=== PATIENT | female | born 1980 | race American Indian/Alaskan Native ===

== ENCOUNTER 2021-03-01 15:13 | Emergency (ER) | payer SELFPAY ==
--- NOTE | 2021-03-01 16:21 | Emergency Department Report ---
<YAEL GARCIA - Last Filed: 03/01/21 19:55> ED Female HPI - General Chief complaint: Vaginal Bleeding Stated complaint: RIGHT SIDE PAIN,VAGINAL BLEEDING Time Seen by Provider: 03/01/21 15:49 Source: patient Mode of arrival: Ambulatory Limitations: No Limitations - History of Present Illness Initial comments: 41-year-old female presents to ED with vaginal bleeding and right-sided abdominal pain since last night. Patient denies any fever, nausea or vomiting, vaginal discharge. Patient states she had a menstrual period earlier this month, starting on 02/11/21, ending on 02/16/21. Patient reports she has been passing blood clots. She is unsure if she is . MD Complaint: vaginal bleeding -: Last night Severity: moderate Quality: cramping Consistency: constant Improves with: none Worsens with: none Associated Symptoms: vaginal bleeding, abdominal pain. denies: vaginal discharge, nausea/vomiting, fever/chills - Related Data Sexually active: Yes Previous Rx's Medication Instructions Recorded Last Taken Type Naproxen [Naprosyn] 500 mg PO BID #20 tablet 03/01/21 Unknown Rx traMADoL [Ultram] 50 mg PO Q6HR PRN #7 tablet 03/01/21 Unknown Rx Allergies Allergy/AdvReac Type Severity Reaction Status Date / Time No Known Allergies Allergy Unverified 03/01/21 15:23 ED Review of Systems Comment: All other systems reviewed and negative Constitutional: denies: fever Gastrointestinal: abdominal pain. denies: nausea, vomiting Genitourinary: abnormal menses ED Past Medical Hx - Medications Home Medications: Home Medications Medication Instructions Recorded Confirmed Last Taken Type Naproxen [Naprosyn] 500 mg PO BID #20 tablet 03/01/21 Unknown Rx traMADoL [Ultram] 50 mg PO Q6HR PRN #7 tablet 03/01/21 Unknown Rx ED Physical Exam - General Limitations: No Limitations General appearance: alert, in no apparent distress - Head Head exam: Present: atraumatic, normocephalic - Eye Eye exam: Present: normal appearance, EOMI - ENT ENT exam: Present: mucous membranes moist - Neck Neck exam: Present: normal inspection - Respiratory Respiratory exam: Present: normal lung sounds bilaterally. Absent: respiratory distress - Cardiovascular Cardiovascular Exam: Present: regular rate, normal rhythm - GI/Abdominal GI/Abdominal exam: Present: soft, tenderness (Right lower quadrant tenderness). Absent: distended - Extremities Exam Extremities exam: Present: normal inspection - Neurological Exam Neurological exam: Present: alert, oriented X3 - Psychiatric Psychiatric exam: Present: normal affect, normal mood - Skin Skin exam: Present: warm, dry, intact, normal color ED Medical Decision Making - Lab Data Result diagrams: 03/01/21 16:42 03/01/21 16:42 ED Disposition Clinical Impression: Right ovarian cyst Disposition: 01 HOME / SELF CARE / HOMELESS Condition: Stable Prescriptions: Naproxen [Naprosyn] 500 mg PO BID #20 tablet traMADoL [Ultram] 50 mg PO Q6HR PRN #7 tablet PRN Reason: Pain Referrals: PRIMARY CAREMD [Primary Care Provider] - 3-5 Days EVELIN GRULLON MD [Staff Physician] - 3-5 Days <REMI RAMIREZ - Last Filed: 03/01/21 21:30> ED Review of Systems ROS: Stated complaint: RIGHT SIDE PAIN,VAGINAL BLEEDING Other details as noted in HPI ED Course Vital Signs 03/01/21 03/01/21 03/01/21 16:19 16:30 19:51 Temperature 98 F 98.3 F Pulse Rate 76 74 Respiratory 24 16 Rate Blood Pressure 118/81 114/78 [Right] O2 Sat by Pulse 100 100 100 Oximetry 03/01/21 21:03 Temperature Pulse Rate 70 Respiratory 20 Rate Blood Pressure 133/93 [Right] O2 Sat by Pulse 99 Oximetry ED Medical Decision Making - Lab Data Result diagrams: 03/01/21 16:42 03/01/21 16:42 - Radiology Data Radiology results: report reviewed Patient Name: ARABELLA STOREY Gender: Female Date of : 1980 Referring Provider: YAEL GARCIA Organization: [facility] Accession Number: [id number] Requested Date: March 01, 2021 17:51 Report Status: Final Requested Procedure: 1 Procedure Description: US pelvis duplex doppler comp Modality: US Findings Reporting MD: Kecia Elizondo Dictation Time: March 01, 2021 19:34 Typo Machine Operator: Not available Inspector [employer] Date: EXAMINATION: Complete pelvic ultrasound, 03/01/2021 CLINICAL INFORMATION: Right pelvic pain and vaginal bleeding COMPARISON: None. FINDINGS: The uterus is normal in size measuring 7.6 x 4.5 x 5.0 cm. The endometrial complex measures a maximum of 4 mm. The right adnexa contains a 2.8 cm cyst. The left adnexa appears within normal limits. Doppler flow is demonstrated to both adnexal regions. There is no free pelvic fluid. IMPRESSION: 1. No sonographic evidence of acute intrapelvic abnormality. 2. Right adnexal cyst. Signer Name: Kecia Elizondo MD Signed: 03/01/2021 7:34 PM Workstation Name: [email or web address] Patient Name: ARABELLA STOREY Gender: Female Date of : 1980 Referring Provider: YAEL GARCIA Organization: [facility] Accession Number: [id number] Requested Date: March 01, 2021 17:52 Report Status: Final Requested Procedure: 1 Procedure Description: US transvaginal Modality: US Findings Reporting MD: Kecia Elizondo Dictation Time: March 01, 2021 19:34 Typo Machine Operator: Not available Inspector [employer] Date: EXAMINATION: Complete pelvic ultrasound, 03/01/2021 CLINICAL INFORMATION: Right pelvic pain and vaginal bleeding COMPARISON: None. FINDINGS: The uterus is normal in size measuring 7.6 x 4.5 x 5.0 cm. The endometrial complex measures a maximum of 4 mm. The right adnexa contains a 2.8 cm cyst. The left adnexa appears within normal limits. Doppler flow is demonstrated to both adnexal regions. There is no free pelvic fluid. IMPRESSION: 1. No sonographic evidence of acute intrapelvic abnormality. 2. Right adnexal cyst. Signer Name: Kecia Elizondo MD Signed: 03/01/2021 7:34 PM Workstation Name: [email or web address] - Medical Decision Making Right ovarian cyst, patient given diagnosis. Recommended follow-up with signal tester. My colleague provided prescription for Ultram and naproxen Critical care attestation.: If time is entered above; I have spent that time in minutes in the direct care of this critically ill patient, excluding procedure time. ED Disposition Is pt being admited?: No Does the pt Need Aspirin: No
[2021-03-01 16:54] LABS: Bilirubin,Urine NEG (Negative); Blood,Urine NEG (Negative); Color,Urine Yellow (Yellow); Mucus,Urine 1+ /HPF; Protein,Urine <15 mg/dL mg/dL (Negative)
[2021-03-01 17:07] LABS: Basophils % (Auto) 0.6 % (0.0-1.8); Eosinophils # (Auto) 0.1 K/mm3 (0.0-0.4); Eosinophils % (Auto) 3.2 % (0.0-4.3); Hematocrit 40.2 % (30.3-42.9); Hemoglobin 12.9 gm/dl (10.1-14.3); Lymphocytes # (Auto) 1.4 K/mm3 (1.2-5.4); Lymphocytes % (Auto) 31.3 % (13.4-35.0); Mean Corpuscular HGB Conc 32 % (30-34); Mean Corpuscular Volume 104 fl (79-97); Monocytes # (Auto) 0.5 K/mm3 (0.0-0.8); Monocytes % (Auto) 11.4 % (0.0-7.3); Platelet Count 269 K/mm3 (140-440); Red Blood Count 3.87 M/mm3 (3.65-5.03); Red Cell Distribution Width 13.1 % (13.2-15.2)
[2021-03-01 17:27] LABS: Blood Urea Nitrogen 9 mg/dL (7-17); Calcium 9.1 mg/dL (8.4-10.2); Hemolysis Index 9
[2021-03-01 17:48] LABS: BUN/Creatinine Ratio 13
[2021-03-01] MEDS ORDERED: KETOROLAC 30 MG/1 ML INJ IM ONE (17:52)
--- NOTE | 2021-03-01 20:38 | Ultrasound Report ---
EXAMINATION: Complete pelvic ultrasound, 03/01/2021 CLINICAL INFORMATION: Right pelvic pain and vaginal bleeding COMPARISON: None. FINDINGS: The uterus is normal in size measuring 7.6 x 4.5 x 5.0 cm. The endometrial complex measures a maximum of 4 mm. The right adnexa contains a 2.8 cm cyst. The left adnexa appears within normal limits. Doppler flow i s demonstrated to both adnexal regions. There is no free pelvic fluid. IMPRESSION: 1. No sonographic evidence of acute intrapelvic abnormality. 2. Right adnexal cyst. Signer Name: Kecia Elizondo MD Signed: 03/01/2021 8:34 PM Workstation Name: [id number]
[2021-03-01 21:03] VITALS: BP 133/93
== END 2021-03-01 21:44 | disposition home or self-care (01) ==
LOC: ED 15:13
DX: N83.201 Unspecified ovarian cyst, right side (principal); N93.9 Abnormal uterine and vaginal bleeding, unspecified; R10.9 Unspecified abdominal pain
CPT/HCPCS: 36415; 76830; 80048; 81001; 84702; 85025; 93975; 96372; 99284; J1885